=== PATIENT | male | born 1990 | race Caucasian/White ===

== ENCOUNTER 2019-07-01 18:28 | Emergency (ER) | payer OTHER, SELFPAY ==
[2019-07-01] MEDS ORDERED: IPRATROPIUM BROM 0.5MG/2.5ML ONE (19:59)
[2019-07-01] MEDS ORDERED: ALBUTEROL 2.5 MG/3 ML NEB SOL ONE (19:59)
--- NOTE | 2019-07-01 20:25 | EDPHYS ---
Physician Documentation [facility] Name: Ermias Hammond Age: 29 yrs Sex: Male : 1990 Arrival Date: 07/01/2019 Time: 18:33 Bed 17 Private MD: Unknown, Unknown ED Physician Matty Salmeron HPI: 07/01 20:17 This 29 yrs old Male presents to ER via Ambulatory with complaints of Cough. kb 20:17 The patient or guardian reports cough, that is intermittent, described as mild, with no kb sputum. Onset: The symptoms/episode began/occurred 1.5 week(s) ago. Severity of symptoms: At their worst the symptoms were moderate, in the emergency department the symptoms are unchanged. Modifying factors: The symptoms are alleviated by nothing, the symptoms are aggravated by nothing. Associated signs and symptoms: The patient has no apparent associated signs or symptoms. The patient has not experienced similar symptoms in the past. The patient has not recently seen a physician. Pt reports cough for 1.5 weeks and he lost his voice a few days ago. Historical: - Allergies: 19:04 No Known Allergies; ae4 - Home Meds: 19:04 None [Active]; ae4 - PMHx: 19:04 Hypertension; ae4 - PSHx: 19:05 None; ae4 - Immunization history:: Adult Immunizations up to date, Flu vaccine is not up to date. - Social history:: Smoking status: Patient uses tobacco products, smokes one-half pack cigarettes per day. - Ebola Screening: : Patient denies travel to an Ebola-affected area in the 21 days before illness onset. ROS: 20:16 Constitutional: Negative for fever, chills, and weight loss, ENT: Negative for injury, kb pain, and discharge, Neck: Negative for injury, pain, and swelling, Cardiovascular: Negative for chest pain, palpitations, and edema, Abdomen/GI: Negative for abdominal pain, nausea, vomiting, diarrhea, and constipation, Back: Negative for injury and pain, MS/Extremity: Negative for injury and deformity, Skin: Negative for injury, rash, and discoloration, Neuro: Negative for headache, weakness, numbness, tingling, and seizure. 20:16 Respiratory: Positive for cough, Negative for dyspnea on exertion, hemoptysis, orthopnea, pleurisy, shortness of breath, sputum production, wheezing. Exam: 20:16 Constitutional: This is a well developed, well nourished patient who is awake, alert, kb and in no acute distress. Head/Face: Normocephalic, atraumatic. ENT: Nares patent. No nasal discharge, no septal abnormalities noted. Tympanic membranes are normal and external auditory canals are clear. Oropharynx with no redness, swelling, or masses, exudates, or evidence of obstruction, uvula midline. Mucous membranes moist. Neck: Trachea midline, no thyromegaly or masses palpated, and no cervical lymphadenopathy. Supple, full range of motion without nuchal rigidity, or vertebral point tenderness. No Meningismus. Chest/axilla: Normal chest wall appearance and motion. Nontender with no deformity. No lesions are appreciated. Cardiovascular: Regular rate and rhythm with a normal S1 and S2. No gallops, murmurs, or rubs. Normal PMI, no JVD. No pulse deficits. Abdomen/GI: Soft, non-tender, with normal bowel sounds. No distension or tympany. No guarding or rebound. No evidence of tenderness throughout. Back: No spinal tenderness. No costovertebral tenderness. Full range of motion. Skin: Warm, dry with normal turgor. Normal color with no rashes, no lesions, and no evidence of cellulitis. MS/ Extremity: Pulses equal, no cyanosis. Neurovascular intact. Full, normal range of motion. Neuro: Awake and alert, GCS 15, oriented to person, place, time, and situation. Cranial nerves II-XII grossly intact. Motor strength 5/5 in all extremities. Sensory grossly intact. Cerebellar exam normal. Normal gait. 20:16 Respiratory: the patient does not display signs of respiratory distress, Respirations: normal, Breath sounds: wheezing: expiratory that is mild, is scattered. Vital Signs: 19:00 BP 135 / 81; Pulse 92; Resp 22; Temp 98.7(O); Pulse Ox 96% on R/A; Weight 111.13 kg (R);ae4 19:33 BP 139 / 96; Pulse 103; Resp 18; Pulse Ox 96% on R/A; wh 20:40 BP 129 / 92; Pulse 83; Resp 18; Pulse Ox 97% on R/A; wh MDM: 19:27 Patient medically screened. kb 20:16 Data reviewed: vital signs, nurses notes. Data interpreted: Pulse oximetry: on room air kb is 96 %. Interpretation: normal. Counseling: I had a detailed discussion with the patient and/or guardian regarding: the historical points, exam findings, and any diagnostic results supporting the discharge/admit diagnosis, lab results, radiology results, the need for outpatient follow up, a family practitioner, to return to the emergency department if symptoms worsen or persist or if there are any questions or concerns that arise at home. 07/01 19:16 Order name: Chest Pa And Lat (2 Views) XRAY; Complete Time: 20:34 kb Administered Medications: 20:01 Drug: DuoNeb (3:1) (2.5 mg - 0.5 mg) 3 ml Route: Nebulizer; wh 20:38 Follow up: Response: No adverse reaction; Wheezing diminished wh Disposition: 07/01/19 20:23 Discharged to Home. Impression: Acute laryngitis, Bronchitis, not specified as acute or chronic. - Condition is Stable. - Discharge Instructions: Acute Bronchitis, [id number], Laryngitis, [id number]. - Prescriptions for Tessalon Perles 100 mg Oral Capsule - take 1 capsule by ORAL route every 8 hours As needed; 15 capsule. Albuterol Sulfate 90 mcg/actuation - inhale 1-2 puff by INHALATION route every 4-6 hours; 1 Inhaler. - Medication Reconciliation Form, Thank You Letter, Antibiotic Education, Prescription Opioid Use form. - Follow up: Emergency Department; When: As needed; Reason: Worsening of condition. Follow up: Private Physician; When: 2 - 3 days; Reason: Recheck today's complaints, Continuance of care, Re-evaluation by your physician. Addendum: 07/07/2019 08:03 Co-signature as Attending Physician, Matty Salmeron MD I agree with the assessment and r n plan of care. Signatures: Dispatcher [employer] Janny Medina, FIRE MANAGEMENT TECHNICIAN-C FIRE MANAGEMENT TECHNICIAN-Ckb Matty Salmeron MD MD rn [place], Winsy Demarco Lake RN RN ae4 Corrections: (The following items were deleted from the chart) 07/01 20:40 20:23 07/01/2019 20:23 Discharged to Home. Impression: Acute laryngitis; Bronchitis, wh not specified as acute or chronic. Condition is Stable. Discharge Instructions: Acute Bronchitis, [id number], Laryngitis, Jmgn-te-[id number]. Prescriptions for Tessalon Perles 100 mg Oral Capsule - take 1 capsule by ORAL route every 8 hours As needed; 15 capsule, Albuterol Sulfate 90 mcg/actuation - inhale 1-2 puff by INHALATION route every 4-6 hours; 1 Inhaler. and Forms are Medication Reconciliation Form, Thank You Letter, Antibiotic Education, Prescription Opioid Use. Follow up: Emergency Department; When: As needed; Reason: Worsening of condition. Follow up: Private Physician; When: 2 - 3 days; Reason: Recheck today's complaints, Continuance of care, Re-evaluation by your physician. kb
--- NOTE | 2019-07-01 20:25 | ER ---
Nurse's Notes [facility] Name: Ermias Hammond Age: 29 yrs Sex: Male : 1990 Arrival Date: 07/01/2019 Time: 18:33 Bed 17 Private MD: Unknown, Unknown Diagnosis: Acute laryngitis;Bronchitis, not specified as acute or chronic Presentation: 07/01 19:02 Presenting complaint: Patient states: Patient states he has been coughing for 1.5 ae4 weeks, sneezing and "lost my voice" 2 days prior. Transition of care: patient was not received from another setting of care. Onset of symptoms was June 25, 2019. Risk Assessment: Do you want to hurt yourself or someone else? Patient reports no desire to harm self or others. Care prior to arrival: Medication(s) given: "Cold and flu medicine". 19:02 Acuity: KATELYN 4 ae4 19:02 Method Of Arrival: Ambulatory ae4 19:20 Initial Sepsis Screen: Does the patient have a suspected source of infection? Yes: wh Productive cough/pneumonia. 19:33 Initial Sepsis Screen: Does the patient meet any 2 criteria? HR > 90 bpm. wh Triage Assessment: 19:01 General: Appears in no apparent distress. comfortable, Behavior is calm, cooperative. ae4 Pain: Complains of pain in chest, upon coughing. EENT: Reports nasal congestion since 1.5 weeks. Neuro: Level of Consciousness is awake, alert, obeys commands, Oriented to person, place, time, situation. Cardiovascular: Patient's skin is warm and dry. Respiratory: Airway is patent Respiratory effort is even, unlabored, Respiratory pattern is regular, symmetrical, Sputum is yellow. GI: Patient currently denies diarrhea, nausea, vomiting. : No signs and/or symptoms were reported regarding the genitourinary system. Derm: No signs and/or symptoms reported regarding the dermatologic system. Musculoskeletal: No signs and/or symptoms reported regarding the musculoskeletal system. Historical: - Allergies: 19:04 No Known Allergies; ae4 - Home Meds: 19:04 None [Active]; ae4 - PMHx: 19:04 Hypertension; ae4 - PSHx: 19:05 None; ae4 - Immunization history:: Adult Immunizations up to date, Flu vaccine is not up to date. - Social history:: Smoking status: Patient uses tobacco products, smokes one-half pack cigarettes per day. - Ebola Screening: : Patient denies travel to an Ebola-affected area in the 21 days before illness onset. Screenin:19 Abuse screen: Denies threats or abuse. Denies injuries from another. Nutritional wh screening: No deficits noted. Tuberculosis screening: No symptoms or risk factors identified. Fall Risk None identified. Assessment: 19:31 General: Appears in no apparent distress. Behavior is calm, cooperative, appropriate wh for age. Pain: Denies pain. Neuro: Level of Consciousness is awake, alert, obeys commands, Oriented to person, place, time, situation, Appropriate for age. Cardiovascular: Heart tones S1 S2. Respiratory: Reports cough that is Airway is patent Respiratory effort is even, unlabored, Respiratory pattern is regular, symmetrical, Breath sounds are clear bilaterally. GI: Abdomen is flat, non-distended. : No signs and/or symptoms were reported regarding the genitourinary system. EENT: Throat is pink. Derm: Skin is intact, is healthy with good turgor, Skin is pink, warm \\T\\ dry. normal. Musculoskeletal: Circulation, motion, and sensation intact. 20:39 Reassessment: Patient appears in no apparent distress at this time. No changes from previously documented assessment. Patient and/or family updated on plan of care and expected duration. Pain level reassessed. Patient is alert, oriented x 3, equal unlabored respirations, skin warm/dry/pink. Vital Signs: 19:00 BP 135 / 81; Pulse 92; Resp 22; Temp 98.7(O); Pulse Ox 96% on R/A; Weight 111.13 kg (R);ae4 19:33 BP 139 / 96; Pulse 103; Resp 18; Pulse Ox 96% on R/A; wh 20:40 BP 129 / 92; Pulse 83; Resp 18; Pulse Ox 97% on R/A; ED Course: 18:33 Patient arrived in ED. ag5 18:33 Unknown, Unknown is Private Physician. ag5 18:50 Janny Grier FNP-C is [facility]. kb 18:50 Matty Salmeron MD is Attending Physician. kb 19:04 Triage completed. ae4 19:05 Arm band placed on left wrist. ae4 19:18 Ronnie Alston is Primary Nurse. wh 19:20 Patient has correct armband on for positive identification. Bed in low position. Call light in reach. Side rails up X 1. Pulse ox on. NIBP on. 19:54 Chest Pa And Lat (2 Views) XRAY In Process Unspecified. EDMS 20:38 No provider procedures requiring assistance completed. Patient did not have IV access during this emergency room visit. Administered Medications: 20:01 Drug: DuoNeb (3:1) (2.5 mg - 0.5 mg) 3 ml Route: Nebulizer; 20:38 Follow up: Response: No adverse reaction; Wheezing diminished Outcome: 20:23 Discharge ordered by . kb 20:39 Discharged to home ambulatory, with family. 20:39 Condition: stable 20:39 Discharge instructions given to patient, family, Instructed on discharge instructions, follow up and referral plans. medication usage, POC Bronchitis and Laryngitis Demonstrated understanding of instructions, follow-up care, medications, POC Prescriptions given X 2. 20:40 Patient left the ED. Signatures: Dispatcher [employer] EDNM Janny Grier, SECURITY INFRASTRUCTURE ENGINEER-C SECURITY INFRASTRUCTURE ENGINEER-Ronnie Gautam Luann Lee ag5 Demarco Lake RN RN ae4 Corrections: (The following items were deleted from the chart) 19:34 19:02 Initial Sepsis Screen: Does the patient meet any 2 criteria? No. Patient's initial sepsis screen is negative. ae4
--- NOTE | 2019-07-01 20:27 | RAD REPORT ---
EXAM DESCRIPTION: Deepa Hopkins (2 Views)07/01/2019 7:53 pm CLINICAL HISTORY: Cough COMPARISON: None FINDINGS: The lungs appear clear of acute infiltrate. The heart is normal size IMPRESSION: No acute abnormalities displayed
== END 2019-07-01 20:40 | disposition home or self-care (01) ==
LOC: ER 18:28
DX: J40 Bronchitis, not specified as acute or chronic (principal); J04.0 Acute laryngitis; I10 Essential (primary) hypertension; F17.210 Nicotine dependence, cigarettes, uncomplicated
CPT/HCPCS: 71046; 94640; 99284